=== PATIENT | male | born 1955 | race Caucasian/White ===

== ENCOUNTER 2024-08-17 21:32 | Observation (INO) ==
--- NOTE | 2024-08-17 21:56 | Emergency Department Note ---
History of Present Illness General Chief complaint: Fever Stated complaint: FEVER, HIGH BP, BALANCE IS OFF, NECK PAIN Time Seen by Provider: 08/17/24 21:42 History of Present Illness Maximum Pain Intensity: 7 This is a 68-year-old male presenting to the emergency department for evaluation of fever, elevated heart rate, and elevated blood pressure. Patient is visiting from [place] and has a known history of lung cancer. He is not on any treatment for this after not tolerating chemotherapy well. Patient has had a cough for the past few days that is new. No significant chest or abdominal pain. He has not taken anything [id number] for symptoms. He rates his discomfort a /10. Home Medications Medication Instructions Recorded Confirmed Type atorvastatin 20 mg tablet 20 mg PO DAILY 08/17/24 08/18/24 History cyanocobalamin (vitamin B-12) 1,000 mcg PO DAILY 08/17/24 08/17/24 History 1,000 mcg capsule lisinopril 10 mg tablet 10 mg PO DAILY 08/17/24 08/17/24 History metoprolol tartrate 50 mg tablet 50 mg PO DAILY 08/17/24 08/17/24 History omeprazole 40 mg capsule,delayed 40 mg PO DAILY 08/17/24 08/18/24 History release Allergies Allergy/AdvReac Type Severity Reaction Status Date / Time No Known Allergies Allergy Unverified 08/18/24 02:25 Past Med/Surg History Problem List (Updated 08/18/24 @ 04:27 by Max Bhatia PA-C) Fever (Acute) Sepsis (Acute) Hypertension (Acute) Medical History (Updated 08/18/24 @ 04:27 by Max Bhatia PA-C) COPD (chronic obstructive pulmonary disease) Small cell lung cancer Surgical History No significant past surgical history Family History (Updated 08/18/24 @ 02:26 by Thelma Edgar DO) Other No significant family history Social History Smoking Status: Former smoker Tobacco Type: Cigarettes Hx Alcohol Use: No Hx Substance Use: No Preferred Language: Thai Communication Ability: Effective Production Crew Supervisor Required: No Beliefs That Will Affect Care: None Current Living Situation: Spouse Other Information That Helps Us Care for You: No Feels Safe at Home: Yes Safety Concerns: Feels Safe At This Time Assistive Devices: Denture - Upper, Denture - Lower and Glasses Review of Systems A total of 10 systems reviewed and were otherwise negative Physical Exam Vital Signs Vital Signs - 24 hr 08/17/24 21:36 08/17/24 21:55 08/17/24 22:10 Temperature 37.2 C Temperature Source Temporal Artery Scan Pulse Rate 135 H 124 H Pulse Rate [Apical] 120 H Pulse Rate from SpO2 Sensor Respiratory Rate 19 28 H 24 Respiratory Effort / Characteristics Non-Labored Spontaneous Respiratory Depth Normal Blood Pressure 148/75 H Blood Pressure [Right Arm] 137/85 Blood Pressure Mean 99 Blood Pressure Mean [Right Arm] 102 Pulse Oximetry 94 95 96 Oxygen Delivery Method Room Air Room Air Room Air Sepsis Recent Fever Within 48 Hours Yes Sepsis New/Unexplained Change in Mental Status N/A Sepsis Action Taken by Nursing No Action Required 08/17/24 22:10 08/17/24 22:33 08/17/24 23:01 Temperature Temperature Source Pulse Rate 123 H 114 H Pulse Rate [Apical] 110 H Pulse Rate from SpO2 Sensor Respiratory Rate 28 H 26 H Respiratory Effort / Characteristics Non-Labored Spontaneous Respiratory Depth Normal Blood Pressure 107/78 Blood Pressure [Right Arm] 97/79 L Blood Pressure Mean 87 Blood Pressure Mean [Right Arm] 85 Pulse Oximetry 96 Oxygen Delivery Method Room Air Sepsis Recent Fever Within 48 Hours Sepsis New/Unexplained Change in Mental Status Sepsis Action Taken by Nursing 08/18/24 00:03 Temperature Temperature Source Pulse Rate 107 H Pulse Rate [Apical] Pulse Rate from SpO2 Sensor 107 H Respiratory Rate 27 H Respiratory Effort / Characteristics Respiratory Depth Blood Pressure 122/81 Blood Pressure [Right Arm] Blood Pressure Mean 94 Blood Pressure Mean [Right Arm] Pulse Oximetry 96 Oxygen Delivery Method Room Air Sepsis Recent Fever Within 48 Hours Sepsis New/Unexplained Change in Mental Status Sepsis Action Taken by Nursing VITALS: Vitals are noted on the nurse's note and reviewed by myself. Vital signs stable. GENERAL: Well-developed, well-nourished, white male, who is uncomfortable appearing, but overall pleasant and cooperative. HEAD: Normocephalic atraumatic. EARS: External ear normal. External auditory canals clear, tympanic membranes pearly rojas without erythema or effusion bilaterally. EYES: Pupils equal round and reactive to light and accommodation. Conjunctivae without injection, sclerae without icterus. Extraocular movements intact. NOSE: Patent, turbinates without inflammation or discharge. MOUTH: Mucous membranes moist. Tonsils are not enlarged. Pharynx without erythema, blood, or exudate. Uvula midline. Airway patent. NECK: Supple without nuchal rigidity. No lymphadenopathy. No thyromegaly. Cervical spine is nontender. HEART: Regular rate and rhythm without murmurs gallops or rubs. LUNGS: Clear to auscultation bilaterally without wheezes, rales or rhonchi. No retractions or accessory muscle use. Course Administered Medications Acetaminophen (Acetaminophen 325 Mg Tab) 650 mg PO Q4H PRN PRN Reason: Pain or Fever Stop: 09/17/24 02:25 Last Admin: 08/18/24 02:58 Dose: 650 mg Documented By: [email or web address] Discontinued Medications Sodium Chloride (Nss) 1,000 mls @ 999 mls/hr IV .Q1H1M ONE Stop: 08/17/24 22:45 Last Infusion: 08/17/24 22:59 Dose: Infused Documented By: Admin: 08/17/24 22:05 Dose: 999 mls/hr Documented By: ADIEL Acetaminophen (Ofirmev) 1,000 mg in 100 mls @ 400 mls/hr IV NOW STA Stop: 08/17/24 21:59 Last Infusion: 08/17/24 22:59 Dose: Infused Documented By: Admin: 08/17/24 22:05 Dose: 400 mls/hr Documented By: ADIEL Vancomycin HCl 2,000 mg/ (Sodium Chloride) 540 mls @ 200 mls/hr IV NOW ONE Stop: 08/18/24 01:57 Last Infusion: 08/18/24 03:54 Dose: Infused Documented By: Admin: 08/18/24 00:30 Dose: 200 mls/hr Documented By: [email or web address] Piperacillin Sod/Tazobactam Sod (Zosyn) 4.5 gm in 100 mls @ 200 mls/hr IV NOW ONE; Protocol Stop: 08/17/24 23:45 Last Infusion: 08/18/24 00:39 Dose: Infused Documented By: Admin: 08/17/24 23:39 Dose: 200 mls/hr Documented By: [email or web address] Sodium Chloride (Nss) 1,000 mls @ 999 mls/hr IV .Q1H1M ONE Stop: 08/18/24 00:37 Last Infusion: 08/18/24 03:54 Dose: Infused Documented By: Admin: 08/18/24 00:31 Dose: 999 mls/hr Documented By: [email or web address] Ioversol (Optiray 320 125ml) 116 ml IV ONCE ONE Stop: 08/17/24 22:51 Last Admin: 08/17/24 22:51 Dose: 116 ml Documented By: ZEE Medical Decision Making Differential Diagnosis Differential diagnosis includes, but is not limited to: Sepsis, myocardial infarction, dysrhythmia, pericarditis, pneumothorax, aortic aneurysm/dissection, DVT/PE, anxiety, GERD, PUD, electrolyte imbalance, thyroid disorder, pneumonia, bronchitis, pancreatitis, and others Laboratory Data 08/17/24 22:00 08/17/24 22:00 Lab Results 08/17/24 08/17/24 08/17/24 Range/Units 21:48 21:50 22:00 WBC 10.41 (4.8-10.8) K/ul RBC 2.88 L (4.70-6.10) M/uL Hgb 9.3 L (14.0-18.0) g/dl Hct 28.4 L (42.0-52.0) % MCV 98.6 (80.0-100.0) fL MCH 32.3 (25.0-34.0) pg MCHC 32.7 (32.0-36.0) g/dL RDW Std Deviation 59.8 H (36.4-46.3) fL RDW Coeff of Fara 16.7 H (11.5-14.5) % Plt Count 113 L (130-400) K/uL MPV 8.8 L (9.4-12.4) fL Immature Gran % (Auto) 0.3 % Neut % (Auto) 89.3 % Lymph % (Auto) 3.7 % [place] % (Auto) 6.4 % Eos % (Auto) 0.1 % Baso % (Auto) 0.2 % Neut # (Auto) 9.30 H (1.40-6.50) K/uL Lymph # (Auto) 0.38 L (1.20-3.40) K/uL [place] # (Auto) 0.67 H (0.11-0.59) K/uL Eos # (Auto) 0.01 (0.00-0.50) K/uL Baso # (Auto) 0.02 (0.00-0.20) K/uL Immature Gran # (Auto) 0.03 (0.01-0.20) K/uL Sodium 133 L (136-145) mmol/L Potassium 3.6 (3.5-5.1) mmol/L Chloride 101 (98-107) mmol/L Carbon Dioxide 20 L (21-32) mmol/L Anion Gap 12 H (3-11) BUN 5 L (6-23) mg/dl Creatinine 0.74 (0.6-1.4) mg/dl Est Cr Clr Drug Dosing 108.8 ml/min eGFR 99.31 BUN/Creatinine Ratio 6.8 L (10-20) Glucose 249 H (70-99(Fasting)) mg/dl Lactate (0.4-2.0) mmol/L Calcium 8.5 L (8.6-10.3) mg/dl Total Bilirubin 0.5 (0.2-1.0) mg/dl AST 18 (13-39) U/L ALT 9 (7-52) U/L Alkaline Phosphatase 48 (34-104) U/L Troponin I High Sens 20.4 H (0-20) pg/ml Total Protein 7.1 (6.0-8.3) gm/dl Albumin 3.5 (3.4-5.0) gm/dl Globulin 3.6 (2.5-4.0) gm/dl Albumin/Globulin Ratio 1.0 (0.9-2) Urine Color Yellow Urine Appearance Clear (Clear) Urine pH 6.0 (4.5-7.5) Ur Specific [place] 1.017 (1.000-1.030) Urine Protein 1+ H (Negative) Urine Glucose (UA) Negative (Negative) Urine Ketones Trace H (Negative) Urine Blood Negative (Negative) Urine Nitrite Negative (Negative) Urine Bilirubin Negative (Negative) Urine Urobilinogen Negative (Negative) Ur Leukocyte Esterase Negative (Negative) Urine WBC (Auto) 0-5 (0-5) /hpf Urine RBC (Auto) 3-5 H (0-2) /hpf U Hyaline Cast (Auto) 3-5 H (0-2) /lpf U Epithel Cells (Auto) 0-2 (0-2) /hpf Urine Bacteria (Auto) None Seen (None Seen) Adenovirus (PCR) Not Detected (NotDetected) B. pertussis DNA (PCR) Not Detected (NotDetected) B.parapertussis DNA PCR Not Detected (NotDetected) C. pneumoniae DNA (PCR) Not Detected (NotDetected) Coronavirus OC43 (PCR) Not Detected (NotDetected) Coronavirus HKU1 (PCR) Not Detected (NotDetected) Coronavirus 229E (PCR) Not Detected (NotDetected) SARS-CoV-2 (PCR) Not Detected (NotDetected) Coronavirus NL63 (PCR) Not Detected (NotDetected) Human Metapneumovir PCR Not Detected (NotDetected) Influenza Type A (PCR) Not Detected (NotDetected) Influenza Type B (PCR) Not Detected (NotDetected) M. pneumoniae (PCR) Not Detected (NotDetected) Parainfluenza 1 (PCR) Not Detected (NotDetected) Parainfluenza 2 (PCR) Not Detected (NotDetected) Parainfluenza 3 (PCR) Not Detected (NotDetected) Parainfluenza 4 (PCR) Not Detected (NotDetected) RSV (PCR) Not Detected (NotDetected) Entero/Rhino (PCR) Not Detected (NotDetected) 08/17/24 08/17/24 08/17/24 Range/Units 22:04 23:39 23:40 WBC (4.8-10.8) K/ul RBC (4.70-6.10) M/uL Hgb (14.0-18.0) g/dl Hct (42.0-52.0) % MCV (80.0-100.0) fL MCH (25.0-34.0) pg MCHC (32.0-36.0) g/dL RDW Std Deviation (36.4-46.3) fL RDW Coeff of Fara (11.5-14.5) % Plt Count (130-400) K/uL MPV (9.4-12.4) fL Immature Gran % (Auto) % Neut % (Auto) % Lymph % (Auto) % [place] % (Auto) % Eos % (Auto) % Baso % (Auto) % Neut # (Auto) (1.40-6.50) K/uL Lymph # (Auto) (1.20-3.40) K/uL [place] # (Auto) (0.11-0.59) K/uL Eos # (Auto) (0.00-0.50) K/uL Baso # (Auto) (0.00-0.20) K/uL Immature Gran # (Auto) (0.01-0.20) K/uL Sodium (136-145) mmol/L Potassium (3.5-5.1) mmol/L Chloride (98-107) mmol/L Carbon Dioxide (21-32) mmol/L Anion Gap (3-11) BUN (6-23) mg/dl Creatinine (0.6-1.4) mg/dl Est Cr Clr Drug Dosing ml/min eGFR BUN/Creatinine Ratio (10-20) Glucose (70-99(Fasting)) mg/dl Lactate 3.5 H* 1.6 (0.4-2.0) mmol/L Calcium (8.6-10.3) mg/dl Total Bilirubin (0.2-1.0) mg/dl AST (13-39) U/L ALT (7-52) U/L Alkaline Phosphatase (34-104) U/L Troponin I High Sens 27.5 H (0-20) pg/ml Total Protein (6.0-8.3) gm/dl Albumin (3.4-5.0) gm/dl Globulin (2.5-4.0) gm/dl Albumin/Globulin Ratio (0.9-2) Urine Color Urine Appearance (Clear) Urine pH (4.5-7.5) Ur Specific [place] (1.000-1.030) Urine Protein (Negative) Urine Glucose (UA) (Negative) Urine Ketones (Negative) Urine Blood (Negative) Urine Nitrite (Negative) Urine Bilirubin (Negative) Urine Urobilinogen (Negative) Ur Leukocyte Esterase (Negative) Urine WBC (Auto) (0-5) /hpf Urine RBC (Auto) (0-2) /hpf U Hyaline Cast (Auto) (0-2) /lpf U Epithel Cells (Auto) (0-2) /hpf Urine Bacteria (Auto) (None Seen) Adenovirus (PCR) (NotDetected) B. pertussis DNA (PCR) (NotDetected) B.parapertussis DNA PCR (NotDetected) C. pneumoniae DNA (PCR) (NotDetected) Coronavirus OC43 (PCR) (NotDetected) Coronavirus HKU1 (PCR) (NotDetected) Coronavirus 229E (PCR) (NotDetected) SARS-CoV-2 (PCR) (NotDetected) Coronavirus NL63 (PCR) (NotDetected) Human Metapneumovir PCR (NotDetected) Influenza Type A (PCR) (NotDetected) Influenza Type B (PCR) (NotDetected) M. pneumoniae (PCR) (NotDetected) Parainfluenza 1 (PCR) (NotDetected) Parainfluenza 2 (PCR) (NotDetected) Parainfluenza 3 (PCR) (NotDetected) Parainfluenza 4 (PCR) (NotDetected) RSV (PCR) (NotDetected) Entero/Rhino (PCR) (NotDetected) Imaging Data Radiologist's Impression: Chest CTA 08/17/24 21:45 Exam(s): CTA CHEST IV Amt: 116 ml optiray 320 EXAM: CT Angiography Chest With Intravenous Contrast CLINICAL HISTORY: Shortness of breath. TECHNIQUE: Axial computed tomographic angiography images of the chest with intravenous contrast. MIPS images were created and reviewed. CTDI is 28 mGy and DLP is 987 mGy-cm. Automated exposure control was utilized for the study. A dose lowering technique was utilized adhering to the principles of ALARA. MIP reconstructed images were created and reviewed. COMPARISON: No relevant prior studies available. FINDINGS: Pulmonary arteries: Unremarkable. No pulmonary embolism. Aorta: Mild atherosclerosis. No thoracic aortic aneurysm. Lungs: There is a 5.9 cm left upper lobe mass consistent with patient's history of malignancy. Interseptal thickening could relate to atelectasis and/or pulmonary edema. There are surgical changes a partial right upper lobectomy. Emphysema. Pleural space: Trace right pleural effusion. No pneumothorax. Heart: A pericardial effusion measures up to 0.8 cm. Coronary artery calcifications are present. No cardiomegaly. No evidence of RV dysfunction. Mediastinum: Unremarkable. Bones/joints: There are degenerative changes of the spine. No acute fracture. Soft tissues: Unremarkable. Lymph nodes: Mediastinal lymphadenopathy measures up to 2.2 cm. IMPRESSION: 1. Interseptal thickening could relate to atelectasis and/or pulmonary edema. Trace right pleural effusion. 2. Mediastinal lymphadenopathy measures up to 2.2 cm. This is most consistent with metastatic disease. 3. There is a 5.9 cm left upper lobe mass consistent with patient's history of malignancy. 4. A pericardial effusion measures up to 0.8 cm. 5. Emphysema. Electronically signed by: Suzanna Davis MD 08/18/24 01:07 AM MDM Narrative Physical exam and history were performed. Nursing notes, EMR, and Medication List were personally reviewed. No social concerns were identified as barriers to patients care. Patient appears to have fever and cough. Patient has a concerning history of lung cancer and is visiting locally to [place]. IV access was established and labs were obtained. He was given IV Tylenol. There is a national fluid shortage and patient was given 1 L normal saline. Bio fire was performed. Due to the patient's history he was sent to CT scan for imaging of his chest. Patient's blood work is as above and was reviewed. His lactic acid is initially elevated at 3.5. He does not have a significantly elevated white blood cell count. He is mildly anemic with a hemoglobin of 9.3. BUN and creatinine are preserved. Glucose elevated at 249. Transaminases are not diagnostic. Initial high-sensitivity troponin is minimally elevated at 20.4. EKG is nonischemic. Urine without evidence of infection. Bio fire is negative. CT scan was performed of the chest and reviewed by myself and radiology. CT does show the known cancer but no distinct evidence of pulmonary emboli or obvious pneumonia. Overall the patient does not appear well for discharge. He was provided IV vancomycin and Zosyn here in the ER. Escalation of care is felt to be necessary. Case was discussed with my attending as well as the on-call hospitalist team. Please see the hospitalist team dictation for further patient course, plan, and disposition. The chart was completed utilizing [employer] Voice Recognition Software. Grammatical errors, random word insertions, pronoun errors, and incomplete sentences are an occasional consequence of this system due to software limitations, ambient noise, and hardware issues. Any formal questions or concerns about the content, text, or information contained within the body of this dictation should be directly addressed to the provider for clarification. M Impression & Plan Sepsis, Fever, Hypertension Discharge Plan Visit Data Chief Complaint: Fever Stated Complaint: FEVER, HIGH BP, BALANCE IS OFF, NECK PAIN ED Provider: Nadeem Barker ED Midlevel Provider: Max Bhatia Discharge Problem: Sepsis, Fever, Hypertension Discharge Instructions Interventions: ED Discharge Assessment Last Done: 08/18/24 02:27
[2024-08-17 22:04] LABS: Appearance Urine Clear (Clear); Bacteria Urine Automated None Seen (None Seen); Bilirubin Urine Negative (Negative); Blood Urine Negative (Negative); Color Urine Yellow; Epithelial Cell Urine Auto 0-2 /hpf (0-2); Glucose Urine UA Negative (Negative); Ketones Urine Trace (Negative); Leukocyte Esterase Urine Negative (Negative); Nitrite Urine Negative (Negative); Protein Urine 1+ (Negative); Specific Gravity Urine 1.017 (1.000-1.030); Urobilinogen Urine Negative (Negative); WBC Urine Automated 0-5 /hpf (0-5)
[2024-08-17] MEDS: ACETAMINOPHEN 1,000 MG/100 ML VIAL IV STA (22:05)
[2024-08-17] MEDS: SODIUM CHLORIDE 0.9% 1,000 ML IV ONE (22:05)
[2024-08-17 22:22] LABS: Basophils # (auto) 0.02 K/uL (0.00-0.20); Basophils % (auto) 0.2 %; Eosinophils # (auto) 0.01 K/uL (0.00-0.50); Eosinophils % (auto) 0.1 %; Hematocrit (blood only) 28.4 % (42.0-52.0); Hemoglobin 9.3 g/dl (14.0-18.0); Immature Granulocytes # (auto) 0.03 K/uL (0.01-0.20); Immature Granulocytes % (auto) 0.3 %; Lymphocytes # (auto) 0.38 K/uL (1.20-3.40); Lymphocytes % (auto) 3.7 %; Mean Corpuscular Hemoglobin 32.3 pg (25.0-34.0); Mean Corpuscular Hgb Conc 32.7 g/dL (32.0-36.0); Mean Corpuscular Volume 98.6 fL (80.0-100.0); Mean Platelet Volume 8.8 fL (9.4-12.4); Monocytes # (auto) 0.67 K/uL (0.11-0.59); Monocytes % (auto) 6.4 %; Neutrophils % (auto) 89.3 %; Platelet Count 113 K/uL (130-400); RDW Coefficient of Variation 16.7 % (11.5-14.5); RDW Standard Deviation 59.8 fL (36.4-46.3); Red Blood Count 2.88 M/uL (4.70-6.10); White Blood Count 10.41 K/ul (4.8-10.8)
[2024-08-17 22:41] LABS: Albumin Level 3.5 gm/dl (3.4-5.0); BUN Creatinine Ratio 6.8 (10-20); Bilirubin,Total 0.5 mg/dl (0.2-1.0); Calcium 8.5 mg/dl (8.6-10.3); Creatinine Clr Calc Pharmacy 108.8 ml/min; Globulin 3.6 gm/dl (2.5-4.0); Potassium 3.6 mmol/L (3.5-5.1); Total Protein 7.1 gm/dl (6.0-8.3)
[2024-08-17 22:45] LABS: Adenovirus PCR Not Detected (NotDetected); Bordetella parapertussis PCR Not Detected (NotDetected); Bordetella pertussis PCR Not Detected (NotDetected); Chlamydia pneumoniae PCR Not Detected (NotDetected); Coronavirus 229E PCR Not Detected (NotDetected); Coronavirus CoV-2 (COVID19)PCR Not Detected (NotDetected); Coronavirus HKU1 PCR Not Detected (NotDetected); Coronavirus NL63 PCR Not Detected (NotDetected); Coronavirus OC43PCR Not Detected (NotDetected); Human Metapneumovirus PCR Not Detected (NotDetected); Influenza A PCR Not Detected (NotDetected); Influenza B PCR Not Detected (NotDetected); Mycoplasma pneumoniae PCR Not Detected (NotDetected); Parainfluenza Virus 1 PCR Not Detected (NotDetected); Parainfluenza Virus 2 PCR Not Detected (NotDetected); Parainfluenza Virus 3 PCR Not Detected (NotDetected); Parainfluenza Virus 4 PCR Not Detected (NotDetected); Respiratory Syncytial VirusPCR Not Detected (NotDetected); Rhinovirus/Enterovirus PCR Not Detected (NotDetected)
[2024-08-17 22:47] LABS: Troponin I High Sensitivity 20.4 pg/ml (0-20)
[2024-08-17] MEDS: OPTIRAY 320 125ml IV ONE (22:51)
[2024-08-17] MEDS ORDERED: VANCOMYCIN CONSULT ACTIVE PRN (23:16)
[2024-08-17] MEDS: PIPERACILLIN/TAZOBACTAM 4.5 GM/100 ML BAG IV ONE (23:39)
--- NOTE | 2024-08-18 00:05 | History & Physical Report ---
Date of Service August 18, 2024 Assessment & Plan (1) Fever: Plan: 68yo male with history of small cell lung cancer presenting with several days of productive cough, generalized weakness, fever and tachycardia. Adequate oxygenation on room air Patient complaining of some neck pain improving with tylenol. No MOORE. Suspect pulmonary infection vs fever/chills secondary to malignancy -Admit to PCU -Check Procalcitonin -Check sputum culture -Follow cultures sent from the ER -Empiric antibiotics with Zosyn and Vancomycin for now -Tylenol PRN -Guaifenesin -Flutter valve QID (2) Hypertension: Plan: Chronic -Continue Metoprolol -Monitor (3) COPD (chronic obstructive pulmonary disease): Plan: Chronic -Albuterol PRN (4) Small cell lung cancer: Plan: Noted. 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 Patient is from [place] and is visiting family for hunting. Patient has had a cough productive for green mucus over the last 3-4 days. Today he developed some nausea and vomiting as well as some shaking chills. He felt more short of breath today as well and his son notes that he appeared to be unsteady on his feet. Patient was out at camp this evening but did not go hunting. Some EMS friends were there and checked his vital signs and he was febrile at 104 which prompted him to come to the ER. In regards to his cancer. He was diagnosed with small cell lung CA over one year ago with metastatic disease to the brain. He has been seen at [facility] and received and had targeted radiation of his brain lesion. He has two additional brain lesions which are being monitored - He has a repeat MRI of the brain scheduled in September. He completed 4 sessions of chemotherapy but developed significant weakness and inability to walk so he decided to stop his chemotherapy treatments. His last treatment was 1.5 months ago. He follows with Oncology in [place], [place] (Dr. Estrada) In the ER patient afebrile. Tachycardic. Blood pressure initially 97/79 on arrival. ER Course: Tylenol Zosyn Vancomycin NSS Allergies Allergy/AdvReac Type Severity Reaction Status Date / Time No Known Allergies Allergy Unverified 12/08/24 02:25 Home Medications Medication Instructions Recorded Confirmed Type atorvastatin 20 mg tablet 20 mg PO DAILY 08/17/24 08/18/24 History cyanocobalamin (vitamin B-12) 1,000 mcg PO DAILY 08/17/24 08/17/24 History 1,000 mcg capsule lisinopril 10 mg tablet 10 mg PO DAILY 08/17/24 08/17/24 History metoprolol tartrate 50 mg tablet 50 mg PO DAILY 08/17/24 08/17/24 History omeprazole 40 mg capsule,delayed 40 mg PO DAILY 08/17/24 08/18/24 History release Past Med/Surg History Problem List (Updated 08/18/24 @ 02:29 by Thelma Edgar DO) Fever Sepsis Hypertension Medical History (Updated 08/18/24 @ 02:29 by Thelma Edgar DO) COPD (chronic obstructive pulmonary disease) Small cell lung cancer Surgical History No significant past surgical history Family History (Updated 08/18/24 @ 02:26 by Thelma Edgar DO) Other No significant family history Social History Smoking Status: Never smoker Preferred Language: Polish Feels Safe at Home: Yes Review of Systems Review of Systems: All systems reviewed & are unremarkable except as noted in HPI & below Physical Exam Physical Exam: General: patient resting comfortably, NAD, non-toxic in appearance, AA&O x 4 Skin: warm, dry, intact, no rashes or lesions HEENT: NC/AT, PERRL, EOMI, anicteric sclera, conjunctiva without injection, external ear normal to inspection and nontender, nares patent, moist mucus membranes, dentition intact, no oropharyngeal lesions, neck supple, trachea midline, no LAD, no thyromegaly, no JVD Heart: +S1/S2, regular, no m/r/g Lungs: equal air entry bilaterally, no rales/rhonchi/wheezes Abd: +BS, soft, NT/ND, no masses/organomegaly/ascites Ext: warm, 2+ pulses in UE/LE bilaterally, no clubbing/cyanosis or edema Neuro: nonfocal, patient AA&O x 4, speech intact, no facial droop, moving all extremities on command with equal strength 5/5 Results & Data Results & Data Vital Signs (Past 12 Hours) Vital Signs Temp Pulse Pulse Resp BP BP Pulse Ox 08/17/24 23:01 110 H 26 H 97/79 L 96 08/17/24 22:33 114 H 28 H 107/78 08/17/24 22:10 123 H 08/17/24 22:10 120 H 24 137/85 96 08/17/24 21:55 124 H 28 H 95 08/17/24 21:36 37.2 C 135 H 19 148/75 H 94 O2 Del Method 08/17/24 23:01 Room Air 08/17/24 22:33 08/17/24 22:10 08/17/24 22:10 Room Air 08/17/24 21:55 Room Air 08/17/24 21:36 Room Air Laboratory Results Laboratory Results WBC 10.41 K/ul (4.8-10.8) 08/17/24 22:00 RBC 2.88 M/uL (4.70-6.10) L 08/17/24 22:00 Hgb 9.3 g/dl (14.0-18.0) L 08/17/24 22:00 Hct 28.4 % (42.0-52.0) L 08/17/24 22:00 MCV 98.6 fL (80.0-100.0) 08/17/24 22:00 MCH 32.3 pg (25.0-34.0) 08/17/24 22:00 MCHC 32.7 g/dL (32.0-36.0) 08/17/24 22:00 RDW Std Deviation 59.8 fL (36.4-46.3) H 08/17/24 22:00 RDW Coeff of Fara 16.7 % (11.5-14.5) H 08/17/24 22:00 Plt Count 113 K/uL (130-400) L 08/17/24 22:00 MPV 8.8 fL (9.4-12.4) L 08/17/24 22:00 Immature Gran % (Auto) 0.3 % 08/17/24 22:00 Neut % (Auto) 89.3 % 08/17/24 22:00 Lymph % (Auto) 3.7 % 08/17/24 22:00 [place] % (Auto) 6.4 % 08/17/24 22:00 Eos % (Auto) 0.1 % 08/17/24 22:00 Baso % (Auto) 0.2 % 08/17/24 22:00 Neut # (Auto) 9.30 K/uL (1.40-6.50) H 08/17/24 22:00 Lymph # (Auto) 0.38 K/uL (1.20-3.40) L 08/17/24 22:00 [place] # (Auto) 0.67 K/uL (0.11-0.59) H 08/17/24 22:00 Eos # (Auto) 0.01 K/uL (0.00-0.50) 08/17/24 22:00 Baso # (Auto) 0.02 K/uL (0.00-0.20) 08/17/24 22:00 Immature Gran # (Auto) 0.03 K/uL (0.01-0.20) 08/17/24 22:00 Sodium 133 mmol/L (136-145) L 08/17/24 22:00 Potassium 3.6 mmol/L (3.5-5.1) 08/17/24 22:00 Chloride 101 mmol/L (98-107) 08/17/24 22:00 Carbon Dioxide 20 mmol/L (21-32) L 08/17/24 22:00 Anion Gap 12 (3-11) H 08/17/24 22:00 BUN 5 mg/dl (6-23) L 08/17/24 22:00 Creatinine 0.74 mg/dl (0.6-1.4) 08/17/24 22:00 Est Cr Clr Drug Dosing 108.8 ml/min 08/17/24 22:00 eGFR 99.31 08/17/24 22:00 BUN/Creatinine Ratio 6.8 (10-20) L 08/17/24 22:00 Glucose 249 mg/dl (70-99(Fasting)) H 08/17/24 22:00 Lactate 1.6 mmol/L (0.4-2.0) 08/17/24 23:39 Calcium 8.5 mg/dl (8.6-10.3) L 08/17/24 22:00 Total Bilirubin 0.5 mg/dl (0.2-1.0) 08/17/24 22:00 AST 18 U/L (13-39) 08/17/24 22:00 ALT 9 U/L (7-52) 08/17/24 22:00 Alkaline Phosphatase 48 U/L (34-104) 08/17/24 22:00 Troponin I High Sens 27.5 pg/ml (0-20) H 08/17/24 23:40 Total Protein 7.1 gm/dl (6.0-8.3) 08/17/24 22:00 Albumin 3.5 gm/dl (3.4-5.0) 08/17/24 22:00 Globulin 3.6 gm/dl (2.5-4.0) 08/17/24 22:00 Albumin/Globulin Ratio 1.0 (0.9-2) 08/17/24 22:00 Urine Color Yellow 08/17/24 21:48 Urine Appearance Clear (Clear) 08/17/24 21:48 Urine pH 6.0 (4.5-7.5) 08/17/24 21:48 Ur Specific [place] 1.017 (1.000-1.030) 08/17/24 21:48 Urine Protein 1+ (Negative) H 08/17/24 21:48 Urine Glucose (UA) Negative (Negative) 08/17/24 21:48 Urine Ketones Trace (Negative) H 08/17/24 21:48 Urine Blood Negative (Negative) 08/17/24 21:48 Urine Nitrite Negative (Negative) 08/17/24 21:48 Urine Bilirubin Negative (Negative) 08/17/24 21:48 Urine Urobilinogen Negative (Negative) 08/17/24 21:48 Ur Leukocyte Esterase Negative (Negative) 08/17/24 21:48 Urine WBC (Auto) 0-5 /hpf (0-5) 08/17/24 21:48 Urine RBC (Auto) 3-5 /hpf (0-2) H 08/17/24 21:48 U Hyaline Cast (Auto) 3-5 /lpf (0-2) H 08/17/24 21:48 U Epithel Cells (Auto) 0-2 /hpf (0-2) 08/17/24 21:48 Urine Bacteria (Auto) None Seen (None Seen) 08/17/24 21:48 Adenovirus (PCR) Not Detected (NotDetected) 08/17/24 21:50 B. pertussis DNA (PCR) Not Detected (NotDetected) 08/17/24 21:50 B.parapertussis DNA PCR Not Detected (NotDetected) 08/17/24 21:50 C. pneumoniae DNA (PCR) Not Detected (NotDetected) 08/17/24 21:50 Coronavirus OC43 (PCR) Not Detected (NotDetected) 08/17/24 21:50 Coronavirus HKU1 (PCR) Not Detected (NotDetected) 08/17/24 21:50 Coronavirus 229E (PCR) Not Detected (NotDetected) 08/17/24 21:50 SARS-CoV-2 (PCR) Not Detected (NotDetected) 08/17/24 21:50 Coronavirus NL63 (PCR) Not Detected (NotDetected) 08/17/24 21:50 Human Metapneumovir PCR Not Detected (NotDetected) 08/17/24 21:50 Influenza Type A (PCR) Not Detected (NotDetected) 08/17/24 21:50 Influenza Type B (PCR) Not Detected (NotDetected) 08/17/24 21:50 M. pneumoniae (PCR) Not Detected (NotDetected) 08/17/24 21:50 Parainfluenza 1 (PCR) Not Detected (NotDetected) 08/17/24 21:50 Parainfluenza 2 (PCR) Not Detected (NotDetected) 08/17/24 21:50 Parainfluenza 3 (PCR) Not Detected (NotDetected) 08/17/24 21:50 Parainfluenza 4 (PCR) Not Detected (NotDetected) 08/17/24 21:50 RSV (PCR) Not Detected (NotDetected) 08/17/24 21:50 Entero/Rhino (PCR) Not Detected (NotDetected) 08/17/24 21:50 Impressions Chest CTA 08/17/24 21:45 Exam(s): CTA CHEST IV Amt: 116 ml optiray 320 EXAM: CT Angiography Chest With Intravenous Contrast CLINICAL HISTORY: Shortness of breath. TECHNIQUE: Axial computed tomographic angiography images of the chest with intravenous contrast. MIPS images were created and reviewed. CTDI is 28 mGy and DLP is 987 mGy-cm. Automated exposure control was utilized for the study. A dose lowering technique was utilized adhering to the principles of ALARA. MIP reconstructed images were created and reviewed. COMPARISON: No relevant prior studies available. FINDINGS: Pulmonary arteries: Unremarkable. No pulmonary embolism. Aorta: Mild atherosclerosis. No thoracic aortic aneurysm. Lungs: There is a 5.9 cm left upper lobe mass consistent with patient's history of malignancy. Interseptal thickening could relate to atelectasis and/or pulmonary edema. There are surgical changes a partial right upper lobectomy. Emphysema. Pleural space: Trace right pleural effusion. No pneumothorax. Heart: A pericardial effusion measures up to 0.8 cm. Coronary artery calcifications are present. No cardiomegaly. No evidence of RV dysfunction. Mediastinum: Unremarkable. Bones/joints: There are degenerative changes of the spine. No acute fracture. Soft tissues: Unremarkable. Lymph nodes: Mediastinal lymphadenopathy measures up to 2.2 cm. IMPRESSION: 1. Interseptal thickening could relate to atelectasis and/or pulmonary edema. Trace right pleural effusion. 2. Mediastinal lymphadenopathy measures up to 2.2 cm. This is most consistent with metastatic disease. 3. There is a 5.9 cm left upper lobe mass consistent with patient's history of malignancy. 4. A pericardial effusion measures up to 0.8 cm. 5. Emphysema. Electronically signed by: Suzanna Davis MD 08/18/24 01:07 AM Code Status & VTE Plan VTE Prophylaxis Plan VTE Prophylaxis will be ordered: Yes PG Care Time/CCT Total # of Minutes Spent Total Time Spent with Patient: Total time spent is greater than 50% in coordination of care (as documented) at patient's floor/unit and/or counseling patient: Coding Level of Care Code 28410 INT INP/OBS CARE 3/75MIN Diagnoses Fever R50.9 Hypertension I10 COPD (chronic obstructive pulmonary disease) J44.9 Small cell lung cancer C34.90
[2024-08-18] MEDS: VANCOMYCIN HCL 2,000 MG in SODIUM CHLORIDE 0.9% 500 ML IV ONE (00:30)
[2024-08-18] MEDS: SODIUM CHLORIDE 0.9% 1,000 ML IV ONE (00:31)
--- NOTE | 2024-08-18 01:08 | CT Scan Report ---
Exam(s): CTA CHEST IV Amt: 116 ml optiray 320 EXAM: CT Angiography Chest With Intravenous Contrast CLINICAL HISTORY: Shortness of breath. TECHNIQUE: Axial computed tomographic angiography images of the chest with intravenous contrast. MIPS images were created and reviewed. CTDI is 28 mGy and DLP is 987 mGy-cm. Automated exposure control was utilized for the study. A dose lowering technique was utilized adhering to the principles of ALARA. MIP reconstructed images were created and reviewed. COMPARISON: No relevant prior studies available. FINDINGS: Pulmonary arteries: Unremarkable. No pulmonary embolism. Aorta: Mild atherosclerosis. No thoracic aortic aneurysm. Lungs: There is a 5.9 cm left upper lobe mass consistent with patient's history of malignancy. Interseptal thickening could relate to atelectasis and/or pulmonary edema. There are surgical changes a partial right upper lobectomy. Emphysema. Pleural space: Trace right pleural effusion. No pneumothorax. Heart: A pericardial effusion measures up to 0.8 cm. Coronary artery calcifications are present. No cardiomegaly. No evidence of RV dysfunction. Mediastinum: Unremarkable. Bones/joints: There are degenerative changes of the spine. No acute fracture. Soft tissues: Unremarkable. Lymph nodes: Mediastinal lymphadenopathy measures up to 2.2 cm. IMPRESSION: 1. Interseptal thickening could relate to atelectasis and/or pulmonary edema. Trace right pleural effusion. 2. Mediastinal lymphadenopathy measures up to 2.2 cm. This is most consistent with metastatic disease. 3. There is a 5.9 cm left upper lobe mass consistent with patient's history of malignancy. 4. A pericardial effusion measures up to 0.8 cm. 5. Emphysema. Electronically signed by: Suzanna Davis MD 08/18/24 01:07 AM
[2024-08-18] MEDS ORDERED: ONDANSETRON INJ 2 MG/ML 2 ML VIAL IV PRN (02:26)
[2024-08-18] MEDS ORDERED: ALBUTEROL HFA 8 GM INHALER INH PRN (02:34)
[2024-08-18] MEDS: ACETAMINOPHEN 325 MG TAB PO PRN (02:58)
[2024-08-18] MEDS: PIPERACILLIN/TAZOBACTAM 4.5 GM/100 ML BAG IV SCH (06:30)
[2024-08-18 08:14] LABS: Estimated Average Glucose 100 mg/dl; Hemoglobin A1C 5.1 % (4.5-5.6)
--- NOTE | 2024-08-18 08:34 | Electrocardiogram Report ---
Test Reason : Blood Pressure : */* mmHG Vent. Rate : 121 BPM Atrial Rate : 121 BPM P-R Int : 144 ms QRS Dur : 126 ms QT Int : 340 ms P-R-T Axes : 56 75 32 degrees QTcB Int : 482 ms Sinus tachycardia Right bundle branch block Abnormal ECG No previous ECGs available Confirmed by Jerry Mcginnis ([id number]) on 08/18/2024 8:34:35 AM Referred By: REFERRED SELF Confirmed By: Jerry Mcginnis
[2024-08-18] MEDS: ENOXAPARIN INJ 40 MG/0.4 ML SYR SQ SCH (09:15)
[2024-08-18] MEDS: PANTOprazole 40 MG TAB PO SCH (09:15)
[2024-08-18] MEDS: guaiFENesin 600 MG TABCR PO SCH (09:15)
[2024-08-18] MEDS: ATORVASTATIN 20 MG TAB PO SCH (09:15)
[2024-08-18] MEDS: METOPROLOL TARTRATE 50 MG TAB PO SCH (09:15)
[2024-08-18] MEDS ORDERED: VANCOMYCIN HCL 1,250 MG in SODIUM CHLORIDE 0.9% 250 ML IV SCH (10:00)
[2024-08-18] MEDS: predniSONE 20 MG TAB PO SCH (10:49)
[2024-08-18 12:44] LABS: Lyme Screen Rflx Confirmation Positive (Negative)
[2024-08-18 13:18] LABS: Lyme Ab IgG 2nd Tier Confirm Positive (Negative); Lyme Ab IgM 2nd Tier Confirm Negative (Negative)
--- NOTE | 2024-08-18 14:17 | Hospitalist Progress Note ---
Date of Service August 18, 2024 Assessment & Plan (1) Fever: Plan: 68yo male with history of small cell lung cancer presenting with several days of productive cough, generalized weakness, fever and tachycardia. Adequate oxygenation on room air Patient complaining of some neck pain improving with tylenol. No MOORE. Suspect pulmonary infection vs fever/chills secondary to malignancy Procalcitonin elevated. no leukocytosis. Sputum culture, pending Blood cultures: pending Continue zosyn. Vanc discontinued after MRSA nares negative and pulm is currently most likely source. Added Prednisone PO - will increased labored breathing & underlying COPD Lyme IgG positive, IgM - pt states he has been treated for lyme in the past, doxycycline deferred Supportive care: tylenol, mucinex, FV, IS -Tylenol PRN -Guaifenesin -Flutter valve QID (2) Hypertension: Plan: Chronic -Continue Metoprolol (3) COPD (chronic obstructive pulmonary disease): Plan: Chronic -Albuterol PRN - steroids added as above (4) Small cell lung cancer: Plan: Noted. Patient is no longer receiving chemotherapy -Request records from Oncology Plan Dispo: continued inpatient stay DVT proh: lovenox added updated by phone 08/18 - appreciates frequent updates Admission and Anticipated Discharge Date Admission Date: August 18, 2024 Subjective Patient seen while in the ER, feeling alittle better than yesterday but breathing is not back to normal. only takes a rescue inhaler for his COPD Does have diarrhea, but not frequency no known tick bites or skin lesions Revisited after lyme testing positive - states that he has been treated for lyme in the past Review of Systems Review of Systems: All systems reviewed & are unremarkable except as noted in Subjective Physical Exam Physical Exam: General: NAD, VS as above, non toxic appearing Resp: some ascessory muscle use, faint wheezing, CV: RRR, no murmur, Abd: normal bowel sounds, non tender, no hepatosplenomegaly Extremities: Moves all extremities, 1+ edema, R>L LE, pt states this is chronic Neuro: A&O x3, Skin: intact, no lesions noted Results & Data Results & Data Vital Signs (Past 12 Hours) Vital Signs Temp Pulse Pulse Resp BP BP Pulse Ox 08/18/24 13:52 98.2 F 77 18 149/83 H 96 08/18/24 13:41 08/18/24 12:00 79 26 H 139/78 97 08/18/24 07:12 88 08/18/24 07:06 85 24 143/80 H 95 08/18/24 04:40 98 H 24 96 08/18/24 04:00 96 H 24 106/72 95 08/18/24 02:27 102 H 17 158/75 H 96 O2 Del Method 08/18/24 13:52 Room Air 08/18/24 13:41 Room Air 08/18/24 12:00 08/18/24 07:12 08/18/24 07:06 CPAP 08/18/24 04:40 08/18/24 04:00 Room Air 08/18/24 02:27 Room Air Laboratory Results cbc and chemistry reviewed PG Care Time/CCT Total # of Minutes Spent Total Time Spent with Patient: Total time spent is greater than 50% in coordination of care (as documented) at patient's floor/unit and/or counseling patient: Coding Level of Care Code None Diagnoses Fever R50.9 Hypertension I10 COPD (chronic obstructive pulmonary disease) J44.9 Small cell lung cancer C34.90
[2024-08-19 07:10] LABS: Hematocrit (blood only) 23.1 % (42.0-52.0); Hemoglobin 7.9 g/dl (14.0-18.0); Mean Corpuscular Hemoglobin 33.6 pg (25.0-34.0); Mean Corpuscular Hgb Conc 34.2 g/dL (32.0-36.0); Mean Corpuscular Volume 98.3 fL (80.0-100.0); Mean Platelet Volume 9.2 fL (9.4-12.4); Platelet Count 104 K/uL (130-400); RDW Coefficient of Variation 16.6 % (11.5-14.5); RDW Standard Deviation 59.1 fL (36.4-46.3); Red Blood Count 2.35 M/uL (4.70-6.10); White Blood Count 8.23 K/ul (4.8-10.8)
[2024-08-19 07:44] LABS: BUN Creatinine Ratio 11.7 (10-20); Calcium 8.4 mg/dl (8.6-10.3); Creatinine Clr Calc Pharmacy 134.8 ml/min; Potassium 3.4 mmol/L (3.5-5.1)
[2024-08-19 08:36] LABS: Reticulocyte % 2.99 % (0.50-2.00); Reticulocytes # 0.07 10^6/uL (0.020-0.100)
[2024-08-19 09:12] LABS: Folate (Folic Acid),Ser orPlas 10.22 ng/ml (>5.38)
--- NOTE | 2024-08-19 10:27 | XRay Report ---
XR chest 1V portable CLINICAL HISTORY: exac COPD, lung cancer TECHNIQUE: Single frontal radiograph of the chest was obtained. Comparison: Comparison is made to CT chest 08/17/2024 FINDINGS: A port catheter is seen. Hilar prominence is partially seen, better visualized on prior CT. The lungs are without consolidation. No evidence of pleural effusion or pneumothorax. IMPRESSION: No acute abnormalities and in particular no evidence of pneumonia. Findings of malignancy are better seen on prior CT. ACT 112: Negative or not required by law. Electronically signed by: Dakota Seals M.D. 08/19/2024 9:56 AM
[2024-08-19] MEDS ORDERED: methylPREDNISolone 10 mg/mL (For Ped Dose < 7mg) IV SCH (10:45)
[2024-08-19] MEDS: IRON SUCROSE 300 MG in SODIUM CHLORIDE 0.9% 250 ML IV ONE (11:25)
[2024-08-19] MEDS: methylPREDNISolone 40 MG in SYRINGE 0 ML IV SCH (11:25)
--- NOTE | 2024-08-19 12:40 | Hospitalist Progress Note ---
Date of Service August 19, 2024 Assessment & Plan (1) Fever: Plan: Suspected viral etiology. Symptomatic care. Continue parenteral steroids for now. Intravenous antibiotics as a precaution. (2) Hypertension: Plan: Stable. Continue Metoprolol (3) COPD (chronic obstructive pulmonary disease): Plan: Mild acute exacerbation probably from viral illness. Continue nebulizer treatments and parenteral steroids for now. (4) Small cell lung cancer: Plan: Patient is no longer receiving chemotherapy. He has a venous access port in place left upper anterior chest wall (5) Iron deficiency anemia: Plan: Parenteral iron replacement therapy started, day 1. Oral iron replacement therapy at discharge (6) Fecal occult blood test positive: Plan: He has an outpatient colonoscopy test scheduled in the near future. He denies overt melena or hematochezia Plan Hopeful discharge to home tomorrow, August 20 Admission and Anticipated Discharge Date Admission Date: August 18, 2024 Subjective Alert and oriented. I suspect he has a viral illness causing his malaise, myalgias, and low-grade fever. This probably caused the exacerbation of COPD. He is now on parenteral steroid therapy along with intravenous Zosyn as a precaution. Lyme IgG is positive and IgM negative consistent with prior infection. Hemoglobin has dropped to 7.9 with IV fluids and fecal occult blood is positive. He has an upcoming outpatient colonoscopy scheduled. He is iron deficient as expected. No overt melena or hematochezia. Venofer has been started. Hopefully he can go home tomorrowAugust 20 Review of Systems 2 Review of Systems: Constitutionalfever prior to admission along with malaise and myalgias ENTno blurred vision, no double vision, no epistaxis, no sore throat Respiratorynonproductive cough. Denies wheezing. No hemoptysis Cardiacno palpitations, no chest pain, no syncope Carol nausea, vomiting, diarrhea, melena, hematochezia GUno urinary retention, no urinary incontinence, no dysuria, no hematuria Musculoskeletalno joint pain. He did have some myalgia prior to admission Skinno bruising, no rashes, no pruritus Neurono isolated weakness, no paresthesia Psychno depression, no anxiety Physical Exam 2 Physical Exam: General-alert and oriented x3, no fever, no chills HEENT-head atraumatic and normocephalic, pupils equal and reactive to light, extraocular muscles intact Neck-no lymphadenopathy or thyromegaly, trachea midline Chest-scattered bilateral rhonchi. No wheezing. No inspiratory rales Cardiac- regular rate and rhythm, normal S1 and S2 Abdomen-normal bowel sounds, no hepatosplenomegaly Extremities-no cyanosis, clubbing, or edema Neuro-cranial nerves II through XII intact, motor and sensory function within normal limits, strength symmetrical, no focal deficits Psych-normal affect, normal mood Results & Data Results & Data Vital Signs (Past 12 Hours) Vital Signs Temp Pulse Pulse Resp BP Pulse Ox O2 Del Method 08/19/24 11:18 36.7 C 66 20 156/86 H 97 Room Air 08/19/24 07:51 36.6 C 105 H 22 112/69 97 Room Air 08/19/24 03:50 37.0 C 79 20 111/63 98 BiPAP 08/19/24 03:21 83 16 97 Laboratory Results 08/19/24 06:42 08/19/24 06:42 PG Care Time/CCT Total # of Minutes Spent Total Time Spent with Patient: Total time spent is greater than 50% in coordination of care (as documented) at patient's floor/unit and/or counseling patient: Coding Level of Care Code 04742 SUB INP/OBS CARE 3/50MIN Diagnoses Fever R50.9 Hypertension I10 COPD (chronic obstructive pulmonary disease) J44.9 Small cell lung cancer C34.90 Iron deficiency anemia D50.9 Fecal occult blood test positive R19.5
[2024-08-20 06:38] LABS: Hematocrit (blood only) 26.1 % (42.0-52.0); Hemoglobin 8.6 g/dl (14.0-18.0); Immature Granulocytes # (auto) 0.04 K/uL (0.01-0.20); Immature Granulocytes % (auto) 0.6 %; Lymphocytes # (auto) 0.57 K/uL (1.20-3.40); Lymphocytes % (auto) 8.6 %; Mean Platelet Volume 9.8 fL (9.4-12.4); Monocytes # (auto) 0.24 K/uL (0.11-0.59); Monocytes % (auto) 3.6 %; Neutrophils # (auto) 5.78 K/uL (1.40-6.50); Neutrophils % (auto) 87.2 %; Platelet Count 117 K/uL (130-400); RDW Coefficient of Variation 16.2 % (11.5-14.5); Red Blood Count 2.61 M/uL (4.70-6.10); White Blood Count 6.63 K/ul (4.8-10.8)
[2024-08-20 06:53] LABS: BUN Creatinine Ratio 15.3 (10-20); Calcium 8.7 mg/dl (8.6-10.3); Creatinine Clr Calc Pharmacy 112.1 ml/min; Potassium 3.5 mmol/L (3.5-5.1)
[2024-08-20 08:17] VITALS: RESP 19; TEMP 97.9
[2024-08-20] MEDS: IRON SUCROSE 300 MG in SODIUM CHLORIDE 0.9% 250 ML IV ONE (10:34)
--- NOTE | 2024-08-20 11:39 | Discharge Summary ---
Discharge Summary Date of Service August 20, 2024 Principal Dx & Hospital Course #1 = Principal Diagnosis (1) Fever: Suspected viral respiratory illness. Symptomatic care. Much improved with parenteral steroid therapy administered while hospitalized. No further treatment needed at discharge (2) Hypertension: Stable. Continue Metoprolol (3) COPD (chronic obstructive pulmonary disease): Mild acute exacerbation probably from viral illness. Treated with nebulizer treatments and parenteral steroids while hospitalized. No further treatment necessary at discharge (4) Small cell lung cancer: Patient is no longer receiving chemotherapy. He has a venous access port in place left upper anterior chest wall (5) Iron deficiency anemia: Parenteral iron replacement therapy started, day 2. Oral iron replacement therapy at discharge (6) Fecal occult blood test positive: He has an outpatient colonoscopy test scheduled in the near future. 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 Patient is from [place] and is visiting family for hunting. Patient has had a cough productive for green mucus over the last 3-4 days. Today he developed some nausea and vomiting as well as some shaking chills. He felt more short of breath today as well and his son notes that he appeared to be unsteady on his feet. Patient was out at camp this evening but did not go hunting. Some EMS friends were there and checked his vital signs and he was febrile at 104 which prompted him to come to the ER. In regards to his cancer. He was diagnosed with small cell lung CA over one year ago with metastatic disease to the brain. He has been seen at [facility] and received and had targeted radiation of his brain lesion. He has two additional brain lesions which are being monitored - He has a repeat MRI of the brain scheduled in September. He completed 4 sessions of chemotherapy but developed significant weakness and inability to walk so he decided to stop his chemotherapy treatments. His last treatment was 1.5 months ago. He follows with Oncology in [place], [place] (Dr. Estrada) In the ER patient afebrile. Tachycardic. Blood pressure initially 97/79 on arrival. ER Course: Tylenol Zosyn Vancomycin NSS Discharge Exam General-alert and oriented x3, no fever, no chills HEENT-head atraumatic and normocephalic, pupils equal and reactive to light, extraocular muscles intact Neck-no lymphadenopathy or thyromegaly, trachea midline Chest-scattered bilateral rhonchi. No wheezing. No inspiratory rales Cardiac- regular rate and rhythm, normal S1 and S2 Abdomen-normal bowel sounds, no hepatosplenomegaly Extremities-no cyanosis, clubbing, or edema Neuro-cranial nerves II through XII intact, motor and sensory function within normal limits, strength symmetrical, no focal deficits Psych-normal affect, normal mood Discharge Plan Discharge Items Patient Disposition: Home - Self-Care Reason For Visit: FEVER Discharge Diagnosis: Suspected viral respiratory illness, acute exacerbation COPD, Hemoccult positive stool, iron deficiency anemia Activity: Resume your previous activity Non-emergency contact: Primary Care Provider Call non-emergency contact if: your symptoms worsen Follow-up/Referrals: PCP,NO [Primary Care Provider] - Diet: Regular Addtl Attending Provider Instructions: Take iron supplement twice daily, preferably ferrous sulfate 325 mg Pending Studies at Discharge: No Stand-Alone Forms: My [employer]sun, Smoking Cessation Medications and DC Order Prescriptions: New ferrous sulfate 325 mg (65 mg iron) tablet 325 mg PO BID Qty: 1 0RF Continued atorvastatin 20 mg Tablet 20 mg PO DAILY omeprazole 40 mg capsule,delayed release(DR/EC) 40 mg PO DAILY lisinopril 10 mg tablet 10 mg PO DAILY metoprolol tartrate 50 mg tablet 50 mg PO DAILY cyanocobalamin (vitamin B-12) 1,000 mcg capsule 1,000 mcg PO DAILY Discharge Orders: Discharge Order (Routine); Ordered 08/20/24 Ordered By: Ganesh Ha Discharge Order- CHF (Routine); Ordered 08/20/24 Ordered By: Ganesh Ha Admission Data Admit Date/Time: 08/18/24 00:05 Attending Provider: Ganesh Ha Admit Provider: Thelma Edgar Primary Care Provider: PCP,NO Other Providers: Thelma Edgar Hospital Stay Data Consultations 08/17/24 23:39 ED Decision to Admit Stat Diagnostic Imagining Performed 08/17/24 21:45 CT angio chest PE protocol Stat Pending Results Patient Have Any Pending Studies at Discharge: No Discharge Instructions Given to Patient (Per Discharging Provider) Take iron supplement twice daily, preferably ferrous sulfate 325 mg Total Time Total Time Spent Total Time Spent (In Minutes): 50 minutes Coding Level of Care Code 21930 INP/OBS DISCH >30 MIN Diagnoses Fever R50.9 Hypertension I10 COPD (chronic obstructive pulmonary disease) J44.9 Small cell lung cancer C34.90 Iron deficiency anemia D50.9 Fecal occult blood test positive R19.5
[2024-08-20 11:44] VITALS: PULSE 78; O2SAT 96
[2024-08-20 12:56] VITALS: BP 174/89
[2024-08-22 12:29] LABS: Babesia microti DNA Not Detected (Not Detected)
== END 2024-08-20 13:49 | disposition home or self-care (01) | DRG 206 ==
LOC: ED 21:32 → INTOOBSV 08-18 00:05 → SUATTDRO 08-18 00:05 → EDINP 08-18 00:05 → 2E 08-18 12:10